=== PATIENT | male | born 1995 | race Caucasian/White ===

== ENCOUNTER → 2016-10-14 | Outpatient (CLI) | payer OTHER ==
[~2016-10-14] MED LIST: ADULT WAL-100 MG/5 M DOB; ALLERGY10 M1 PO; ATENOLOL25 MG DOB; BACITRACIN OP3.5 GM OD; BACLOFEN20 M1 DOB; BACLOFEN20 M1 PEG; CALCIUM CA500 MG/5 M PEG; CARBAMAZEP100 MG/5 M DOB; CARBAMAZEP100 MG/5 M PEG; CENTRUM MU9 MG/15 ML DOB; CLARITIN10 M2 DOB; COLACE50 MG/5 ML DOB; COLACE50 MG/5 ML PO; DIASTAT10 MG PO; DIASTAT10 MG PR; DIAZEPAM10 MG DOB; DIAZEPAM10 MG PEG; DIFLUCAN200 MG FT; ESZOPICLONE3 MG DOB; FEROSUL220 MG/5 M DOB; HYPERTONIC SALINE INH; MAPAP160 MG/51 DOB; MAPAP160 MG/52 PO; MELATONIN1 M1 PEG; MELATONIN1 MG DOB; MELATONIN5 MG DOB; MIRALAX17 G2 DOB; MIRALAX17 GM DOB; MUCOMYST4 ML 20% INH; MULTIVITAM9 MG/15 ML PEG; NEXIUM20 MG/PACK DOB; NEXIUM20 MG/PACK PEG; PRINCIPEN500 M2 FT; VITAMIN D310000 UNI1 DOB; [UNRECOGNIZED DRUG - OTHER] PEG
== END | disposition home or self-care (01) ==
LOC: CSSDAY 10:27
DX: M81.8 Other osteoporosis without current pathological fracture (principal); Z79.899 Other long term (current) drug therapy
CPT/HCPCS: 96372; J0897

== ENCOUNTER → 2016-11-10 | Outpatient (CLI) | payer OTHER ==
--- NOTE | ~2016-11-10 | CT20 ---
[facility] A Service of [facility] & [facility] RADIOLOGY TEXT RESULTS PATIENT: ИВАН EASLEY LOCATION: [facility] : [birth year] UNIT #: [id number] AGE: [address]: CELESTE GOLDSMITH SEX: M ORDER DR: [id number] [facility] [address] [place], [place] [address] [id number] O MR#: [id number] Acc #: [id number] NAME: ИВАН EASLEY : 1995 SEX: M STUDY DATE/TIME: 11/10/2016 9:52 UNIT: [facility] ROOM: STUDY DESCRIPTION: CT Angio Lower Ext Patrick Attending Physician: Celeste Goldsmith Referring Physician: Celeste Goldsmith Primary Care Physician: Tutu Mansfield Sr., M.D. MEDICAL IMAGING REPORT This report is preliminary unless electronic signature is present EXAM CT angiogram of the bilateral lower extremities. HISTORY This patient is a 20-year-old, [place] patient who has had ulcerations on the left leg present for greater than a year as well as some edema. Patient had an abnormal ankle-brachial index study on September 30, 2016. TECHNIQUE Axial CT images were obtained from the pelvis through both lower extremities following administration of intravenous contrast. Following that, 3-D reformatted images were obtained. This CT exam was performed with one or more of the following radiation dose reduction techniques: automatic exposure control, adjustment of mA and/or kV according to patient size, and iterative reconstruction. FINDINGS Both external iliac arteries are widely patent. Left internal iliac artery appears to be patent as well as the visualized portions of the right internal iliac artery. Right common femoral artery is patent without evidence of flow-limiting stenosis. Right profunda femoris also appears to be patent. Images through the thighs are severely limited due to motion artifact. Right superficial femoral artery does appear to be patent to at least the distal thigh. Right popliteal artery appears to be patent. Calf vessels can only be seen within the proximal calf. Distal flow really cannot be assessed on this examination. Left common femoral artery is also widely patent. Images through the proximal thigh, again, are severely degraded by motion artifact, which precludes true assessment of the left profunda femoris as well as of the left superficial femoral artery. Distally, there is flow identified within the left superficial femoral artery. I think there is probably 3-vessel continuous runoff to the left foot. [facility]. [facility] A Service of [facility] RADIOLOGY TEXT RESULTS PATIENT: ИВАН EASLEY LOCATION: [facility] : [birth year] UNIT #: [id number] AGE: [address]: CELESTE GOLDSMITH SEX: M ORDER DR: Prostate gland is unremarkable as is the urinary bladder. I do not see any free fluid or adenopathy within the pelvis. Sclerotic lesion is identified within the left iliac bone. Patient is noted to be osteoporotic. IMPRESSION This exam is severely limited as the patient became combative and it is significantly degraded by motion artifact. I suspect that the patient's external iliac as well as the common femoral and superficial femoral arteries are widely patent although assessment of the left superficial femoral artery is very limited due to motion artifact. I suspect that there is 3-vessel continuous runoff to the left foot. The calf vessels on the right really can only be identified within proximal calf although this may be related to motion artifact rather than to any true vascular occlusion. Catheter angiography potentially could clarify, but I suspect may not be possible in this patient with profound mental retardation and contractures. Dictated by... Mony Cabrales M.D. THIS IS AN ELECTRONICALLY VERIFIED REPORT Mony Cabrales M.D. at 11/12/2016 4:28 PM AFF/pc TD: 11/12/2016 10:19 JOB #: [id number] MEDICAL IMAGING REPORT Page 1 of 1 COPY
== END | disposition home or self-care (01) ==
LOC: CCAT 08:39
DX: R09.89 Other specified symptoms and signs involving the circulatory and respiratory systems (principal)
CPT/HCPCS: 73706; 74174; Q9967

== ENCOUNTER → 2017-04-26 | Outpatient (CLI) | payer OTHER | END | disposition home or self-care (01) | LOC: CSSDAY 08:46 | DX: M81.8 Other osteoporosis without current pathological fracture (principal); M85.80 Other specified disorders of bone density and structure, unspecified site | CPT/HCPCS: 96372; J0897 ==